=== PATIENT | male | born 1960 | race Caucasian/White ===

== ENCOUNTER 2020-03-04 10:46 | Outpatient (CLI) | payer BC, SELFPAY ==
--- NOTE | 2020-03-04 09:15 | DI.RAD_ITS ---
EXAM: XR WRIST LT COMP NAVICULAR CLINICAL HISTORY: left wrist DJD. TECHNIQUE: 2D digital imaging was performed. COMPARISON: CR LEFT WRIST COMPLETE + NAVICULA from 04/10/2016 FINDINGS: At the articulation of the scaphoid and the quadrangular bones, there is marked joint space narrowing and subchondral sclerosis small osteophytes are also present. At the 1st CMC joint, there is joint space narrowing and mild renal osteophytosis. Tiny well corticated osseous densities are seen adjace nt to the 1st CMC joint. These appear old. No acute fracture or dislocation is seen. The soft tiss ues are unremarkable. IMPRESSION: Osteoarthritis of the left wrist. DATA REPOSITORY: RADIATION DOSE DELIVERED:
--- NOTE | 2020-03-04 09:15 | DI.RAD_ITS ---
EXAM: XR WRIST RT COMPL NAVICULAR CLINICAL HISTORY: right wrist pain. TECHNIQUE: 2D digital imaging was performed. COMPARISON: No exams were available for comparison FINDINGS: There is joint space narrowing and subchondral sclerosis at the articulation of the scaphoid with the trapezium. At the 1st CMC joint, joint space narrowing and osteophytes are present. No acute fract ure or dislocation is seen. The bones are normally mineralized. The soft tissues are unremarkable. IMPRESSION: Degenerative changes of the right wrist. DATA REPOSITORY: RADIATION DOSE DELIVERED:
== END 2020-03-04 11:06 ==
PROVIDERS: PCP Registered Nurse; Visit Provider Physician Assistant
DX: M25.531 Pain in right wrist (principal); M19.031 Primary osteoarthritis, right wrist; M25.532 Pain in left wrist; M19.032 Primary osteoarthritis, left wrist
CPT/HCPCS: 73110